=== PATIENT | male | born 1960 | race Caucasian/White ===

== ENCOUNTER 2017-04-30 05:50 | Day surgery (SDC) | payer BC ==
[2017-04-28 13:14] VITALS: BMI 29.4
[~2017-04-30 05:50] MED LIST: HEPARIN SODIUM,PORCINE 5,000 UNIT/ML 1 ML VIAL SQ ONE; ceFAZolin 2 GM in SODIUM CHLORIDE 0.9% 100 ML IVPB ONE
[2017-04-30] MEDS ORDERED: HYDROmorphone 0.5 MG/0.5 ML SYRINGE IVP PRN (06:04)
[2017-04-30] MEDS ORDERED: DEXAMETHASONE SOD PHOSPHATE 10 MG/ML 1 ML VIAL IV ONE (06:04)
[2017-04-30] MEDS ORDERED: ONDANSETRON 4 MG/2 ML VIAL IVP ONE (06:04)
[2017-04-30] MEDS: LACTATED RINGERS 1,000 ML IV SCH ×2 (06:36→06:37)
[2017-04-30] MEDS ORDERED: LIDOCAINE 1% 20 ML VIAL (10MG/ML) FOR IV START INTRADERMA ONE (06:37)
[2017-04-30] MEDS ORDERED: SUCCINYLCHOLINE CHLORIDE 100 MG/5 ML SYR IV ONE (07:48)
[2017-04-30] MEDS ORDERED: NEOSTIGMINE 1 MG/ML 10 ML VIAL ONE (07:48)
[2017-04-30] MEDS ORDERED: PROPOFOL 10 MG/ML 20 ML VIAL IV ONE (07:48)
[2017-04-30] MEDS ORDERED: ROCURONIUM BROMIDE 10 MG/ML 10 ML VIAL IV ONE ×2 (07:48)
[2017-04-30] MEDS ORDERED: GLYCOPYRROLATE 0.2 MG/ML 2 ML VIAL ONE (07:48)
[2017-04-30] MEDS ORDERED: HYDROmorphone (PF) 1 MG/ML ONE (07:48)
[2017-04-30] MEDS ORDERED: KETOROLAC 30 MG/ML 1 ML VIAL ONE (07:48)
[2017-04-30] MEDS ORDERED: MIDAZOLAM 2 MG/2 ML VIAL ONE (07:48)
[2017-04-30] MEDS ORDERED: fentaNYL (PF) 50 MCG/ML 2 ML AMP ONE (07:48)
[2017-04-30] MEDS ORDERED: BUPIVACAINE-EPI 0.5%-1:200,000 10 ML VIAL SQ ONE (08:46)
[2017-04-30 10:17] VITALS: TEMP 97.4
--- NOTE | 2017-04-30 10:18 | P.OP ---
Date of Procedure: 04/30/17 Preoperative Diagnosis: Right inguinal hernia Postoperative Diagnosis: Right indirect inguinal hernia Procedure(s) Performed: RObot assisted laparoscopic right inguinal hernia repair with mesh Anesthesia: CARRILLO Surgeon: Jimi Rivera Pathology: none sent Condition: stable Description of Procedure: Informed consent was obtained patient and then The patient was brought to the operating room and placed in supine position. General anesthesia with endotracheal intubation was performed as per anesthesia team. A mcdonald catheter was inserted under sterile aseptic precautions. Chlorhprep was used to prep the skin followed by application of sterile drapes . He was placed in the lithotomy position.A timeout was performed to verify correct patient, correct procedure and correct side. Patient was confirmed to receive perioperative IV antibiotics, subcutaneous heparin 5000 units and bilateral SCDs were placed. The left upper quadrant point was identified and a stab incision was made. Veress needle was introduced and placement was confirmed with the help of the drop test. The abdomen was then insufflated to 15 mmHg. Once that was done 5 mm port was introduced into the left upper quadrant using the Optiview technique after which a 12 mm port was placed in the supraumbilical position and a 8 mm port in the right lower quadrant and another 8 mm port in the left upper quadrant . The robot was then docked with the central camera port and the 2 side working ports. The degree of scope was introduced and the abdomen down through the 12 mm port site. Cardiovascular and the left hand and scissor in the right hand was introduced in the abdominal cavity after which the median umbilical fold was retracted laterally towards the left side a small incision was made at the junction of the umbilical fold and the peritoneum and carried all the way laterally thus creating a small plane in the preperitoneal space. This did this was further dissected with the help of blunt dissection using gentle stroking maneuvers all the way down to Javier ligament medially and laterally we went inferior exposing the vessels inferiorly. The vas was identified and the hernia sac was teased off of the spermatic cord gently with the help of blunt dissection. The hernia sac was very densely adherent as well as extremely long extending on very deep arm and therefore instead of completely removing it was transected with the help of a scissors and this freeing up the cord and the hernia sac. Once critical view was was confirmed the 10 x 15 Bard Pro setter helper mesh was introduced in the abdominal cavity with the lower part above the level of the peritoneal fold was then unfolded so that it covered all the orifices and covered the Javier's ligament medially once again pain positioned perfectly to seal was applied to the inferior edge of the mesh as well as around the Javier's ligament after which the peritoneal flaps were closed with the help of running 20V lock suture. The holes in the peritoneum were closed with the help of 2-0 Vicryl. once that was done procedure was completed all incisions and camera was removed and a laparoscope was introduced and the 12 mm port site was closed with the help of a Carlos Pena the direct vision after which gas was turned off abdomen was thoroughly desufflated skins was closed with the help of 4-0 Monocryl and Dermabond. patient was extubated and taken to recovery room in stable condition patient tolerated the procedure well there were no complications
[2017-04-30] MEDS ORDERED: HYDROcodone/APAP 5-325MG 1 EACH TAB PO ONE (10:57)
[2017-04-30 12:18] VITALS: RESP 16
[2017-04-30 12:44] VITALS: BP 110/74; PULSE 51
== END 2017-04-30 13:24 | disposition home or self-care (01) ==
LOC: OR 05:50
PROVIDERS: ATTEND Surgery
DX: K40.90 Unilateral inguinal hernia, without obstruction or gangrene, not specified as recurrent (principal); I10 Essential (primary) hypertension; Z82.3 Family history of stroke; Z82.49 Family history of ischemic heart disease and other diseases of the circulatory system; Z80.7 Family history of other malignant neoplasms of lymphoid, hematopoietic and related tissues; Z79.899 Other long term (current) drug therapy
CPT/HCPCS: 49650; S2900

== ENCOUNTER 2020-05-06 21:22 | Emergency (ER) | payer BC ==
[2020-05-06] MEDS ORDERED: SODIUM CHLORIDE 0.9% 500 ML 500 ML IV STA (22:05)
--- NOTE | 2020-05-06 22:06 | ED ---
Abdominal Pain HPI - General Chief Complaint: Abdominal Pain Stated Complaint: Abd Pain Source: patient Mode of arrival: ambulatory Limitations: no limitations - History of Present Illness Initial Comments: Celso is a previously healthy 60-year-old male who presents to ER today for evaluation of left-sided abdominal pain. Patient reports the pain began as an ache earlier in the day progressively worsening to the point where he cannot get comfortable or sleep. Patient reports the pain is now sharp located in the left lower quadrant. No radiation to the back or the pelvis. He does feel he is constipated he had one firm stool earlier today. Last colonoscopy was 8 years ago and reportedly normal he is scheduled to have another colonoscopy in 2 years. No history of diverticulitis diverticulosis. History of kidney stones. No lower urinary tract symptoms. - Related Data Home Medications Medication Instructions Recorded Confirmed Lisinopril-Hctz 20-12.5 mg 1 tab PO DAILY 04/28/17 04/30/17 [Zestoretic 20-12.5] Multivitamin [Men's Multi-Vitamin] 1 each PO DAILY 04/28/17 04/30/17 Previous Rx's Medication Instructions Recorded HYDROcodone/APAP 5-325MG [[place] 5] 1 each PO Q4HR PRN #12 tab 04/30/17 Ibuprofen [Motrin] 800 mg PO Q8H #30 tab 04/30/17 Allergies Allergy/AdvReac Type Severity Reaction Status Date / Time No Known Allergies Allergy Verified 05/06/20 21:29 Review of Systems ROS Statement: Those systems with pertinent positive or pertinent negative responses have been documented in the HPI. ROS Other: All systems not noted in ROS Statement are negative. Past Medical History Past Medical History: Hypertension Additional Past Medical History / Comment(s): RT INGUINAL HERNIA History of Any Multi-Drug Resistant Organisms: None Reported Additional Past Surgical History / Comment(s): RT EYE LAZY Past Anesthesia/Blood Transfusion Reactions: No Reported Reaction Past Psychological History: No Psychological Hx Reported Smoking Status: Never smoker Past Alcohol Use History: Occasional Past Drug Use History: None Reported - Past Family History Son(s) Family Medical History: Cancer Additional Family Medical History / Comment(s): LYMPHOMA General Exam - General Exam Comments Initial Comments: Physical Exam GENERAL: Patient is well-developed and well-nourished. Patient is nontoxic and well-hydrated and is in no distress. HENT: Normocephalic, Atraumatic. EYES: PERRL, EOMI PULMONARY: Unlabored respirations. CARDIOVASCULAR: RRR Warm and well perfused extremities ABDOMEN: Non-distended Tender to palpation in LLQ Non-peritoneal No hernia on exam SKIN: No rashes or bruising : Deferred NEUROLOGIC: Alert and oriented Normal speech Normal gait MUSCULOSKELETAL: Moving all extremities with no apparent injury PSYCHIATRIC: No SI/HI Limitations: no limitations Course Vital Signs 05/06/20 05/06/20 21:27 22:45 Temperature 98.1 F Pulse Rate 87 82 Respiratory 16 18 Rate Blood Pressure 112/76 105/66 O2 Sat by Pulse 96 98 Oximetry Medical Decision Making - Medical Decision Making Patient was seen and evaluated, history is obtained from the patient and at bedside Healthy 60-year-old male with left lower quadrant discomfort, no change in bowel or bladder habits Labs were obtained and confirmed chronic kidney disease no acute findings no leukocytosis Computed tomography scan was obtained to evaluate for possible diverticulitis and was negative there are no acute findings Results were discussed with the patient who expresses relief. I discussed with the patient that this could be musculoskeletal in nature as he does work out very avidly imperative pulled a muscle. In addition we discussed possibility that this is a. Herpetic neuralgia he could be developing shingles and if he develops any rashing needs to return to the ER see his primary care physician immediately for medications. All questions pertaining care were answered return parameters were discussed patient was discharged home in stable condition. - Lab Data Result diagrams: 05/06/20 22:12 05/06/20 22:12 Lab Results 05/06/20 05/06/20 05/06/20 Range/Units 22:12 22:12 22:12 WBC 8.2 (3.8-10.6) k/uL RBC 4.80 (4.30-5.90) m/uL Hgb 15.5 (13.0-17.5) gm/dL Hct 45.8 (39.0-53.0) % MCV 95.5 (80.0-100.0) fL MCH 32.4 (25.0-35.0) pg MCHC 33.9 (31.0-37.0) g/dL RDW 12.3 (11.5-15.5) % Plt Count 272 (150-450) k/uL Neutrophils % 63 % Lymphocytes % 25 % Monocytes % 8 % Eosinophils % 3 % Basophils % 0 % Neutrophils # 5.1 (1.3-7.7) k/uL Lymphocytes # 2.1 (1.0-4.8) k/uL Monocytes # 0.6 (0-1.0) k/uL Eosinophils # 0.2 (0-0.7) k/uL Basophils # 0.0 (0-0.2) k/uL Sodium 133 L (137-145) mmol/L Potassium 4.3 (3.5-5.1) mmol/L Chloride 104 (98-107) mmol/L Carbon Dioxide 19 L (22-30) mmol/L Anion Gap 10 mmol/L BUN 27 H (9-20) mg/dL Creatinine 1.45 H (0.66-1.25) mg/dL Est GFR (CKD-EPI)AfAm 59 (>60 ml/min/1.73 sqM) Est GFR (CKD-EPI)NonAf 51 (>60 ml/min/1.73 sqM) Glucose 102 H (74-99) mg/dL Plasma Lactic Acid Bin (0.7-2.0) mmol/L Calcium 9.5 (8.4-10.2) mg/dL Total Bilirubin 0.6 (0.2-1.3) mg/dL AST 47 (17-59) U/L ALT 46 (4-49) U/L Alkaline Phosphatase 92 (38-126) U/L Total Protein 7.4 (6.3-8.2) g/dL Albumin 4.7 (3.5-5.0) g/dL Lipase 137 (23-300) U/L Urine Color Yellow Urine Appearance Clear (Clear) Urine pH 5.5 (5.0-8.0) Ur Specific [place] 1.018 (1.001-1.035) Urine Protein Negative (Negative) Urine Glucose (UA) Negative (Negative) Urine Ketones Negative (Negative) Urine Blood Negative (Negative) Urine Nitrite Negative (Negative) Urine Bilirubin Negative (Negative) Urine Urobilinogen <2.0 (<2.0) mg/dL Ur Leukocyte Esterase Small H (Negative) Urine RBC <1 (0-5) /hpf Urine WBC 2 (0-5) /hpf Urine Mucus Rare H (None) /hpf 05/06/20 Range/Units 22:12 WBC (3.8-10.6) k/uL RBC (4.30-5.90) m/uL Hgb (13.0-17.5) gm/dL Hct (39.0-53.0) % MCV (80.0-100.0) fL MCH (25.0-35.0) pg MCHC (31.0-37.0) g/dL RDW (11.5-15.5) % Plt Count (150-450) k/uL Neutrophils % % Lymphocytes % % Monocytes % % Eosinophils % % Basophils % % Neutrophils # (1.3-7.7) k/uL Lymphocytes # (1.0-4.8) k/uL Monocytes # (0-1.0) k/uL Eosinophils # (0-0.7) k/uL Basophils # (0-0.2) k/uL Sodium (137-145) mmol/L Potassium (3.5-5.1) mmol/L Chloride (98-107) mmol/L Carbon Dioxide (22-30) mmol/L Anion Gap mmol/L BUN (9-20) mg/dL Creatinine (0.66-1.25) mg/dL Est GFR (CKD-EPI)AfAm (>60 ml/min/1.73 sqM) Est GFR (CKD-EPI)NonAf (>60 ml/min/1.73 sqM) Glucose (74-99) mg/dL Plasma Lactic Acid Bin 0.6 L (0.7-2.0) mmol/L Calcium (8.4-10.2) mg/dL Total Bilirubin (0.2-1.3) mg/dL AST (17-59) U/L ALT (4-49) U/L Alkaline Phosphatase (38-126) U/L Total Protein (6.3-8.2) g/dL Albumin (3.5-5.0) g/dL Lipase (23-300) U/L Urine Color Urine Appearance (Clear) Urine pH (5.0-8.0) Ur Specific [place] (1.001-1.035) Urine Protein (Negative) Urine Glucose (UA) (Negative) Urine Ketones (Negative) Urine Blood (Negative) Urine Nitrite (Negative) Urine Bilirubin (Negative) Urine Urobilinogen (<2.0) mg/dL Ur Leukocyte Esterase (Negative) Urine RBC (0-5) /hpf Urine WBC (0-5) /hpf Urine Mucus (None) /hpf Disposition Clinical Impression: Abdominal pain Disposition: HOME SELF-CARE Condition: Stable Additional Instructions: As we discussed her labs and CT were unremarkable there were no acute findings or signs of inflammation of your bowel It is possible E have a pulled muscle in her abdomen however given a having si gnificant pain in one specific area we cannot rule out the ear developing shingles if you develop any rash return to the ER or see her primary care physician for medications Is patient prescribed a controlled substance at d/c from ED?: No Referrals: Yogesh Suh MD [Primary Care Provider] - 1-2 days
[2020-05-06 22:23] LABS: Basophils % (A) 0 %; Eosinophils # (A) 0.2 k/uL (0-0.7); Eosinophils % (A) 3 %; HCT 45.8 % (39.0-53.0); HGB 15.5 gm/dL (13.0-17.5); Lymphocytes # (A) 2.1 k/uL (1.0-4.8); Lymphocytes % (A) 25 %; MCH 32.4 pg (25.0-35.0); MCHC 33.9 g/dL (31.0-37.0); MCV 95.5 fL (80.0-100.0); Mean Platelet Volume 7.1; Monocytes # (A) 0.6 k/uL (0-1.0); Monocytes % (A) 8 %; Neutrophils # (A) 5.1 k/uL (1.3-7.7); Neutrophils % (A) 63 %; Platelet Count 272 k/uL (150-450); RDW 12.3 % (11.5-15.5); WBC 8.2 k/uL (3.8-10.6)
[2020-05-06 22:36] LABS: Albumin 4.7 g/dL (3.5-5.0); Calcium 9.5 mg/dL (8.4-10.2); Total Bilirubin 0.6 mg/dL (0.2-1.3); Total Protein 7.4 g/dL (6.3-8.2)
--- NOTE | 2020-05-06 22:37 | XR ---
EXAMINATION TYPE: XR KUB DATE OF EXAM: 05/06/2020 COMPARISON: NONE HISTORY: Left lower quadrant pain TECHNIQUE: 2 views FINDINGS: There is no sign of intestinal obstruction or pneumoperitoneum. Fecal pattern is normal. Th ere is no evidence of a mass. Lung bases are clear. There are no pathologic calcifications over the k idneys. There is moderate narrowing of the left hip joint space. IMPRESSION: Nonacute abdomen.
[2020-05-06 22:48] LABS: Potassium 4.3 mmol/L (3.5-5.1)
[2020-05-06 23:26] LABS: Appearance,Urine Clear (Clear); Bilirubin,Urine Negative (Negative); Blood,Urine Negative (Negative); Color,Urine Yellow; Glucose,Urine (UA) Negative (Negative); Ketones,Urine Negative (Negative); Leukocyte Esterase,Urine Small (Negative); Mucus,Urine Rare /hpf; Nitrite,Urine Negative (Negative); PH, Urine 5.5 (5.0-8.0); Protein,Urine Negative (Negative); RBC,Urine <1 /hpf (0-5); Specific Gravity,Urine 1.018 (1.001-1.035); Urobilinogen,Urine <2.0 mg/dL (<2.0); WBC,Urine 2 /hpf (0-5)
--- NOTE | 2020-05-06 23:46 | CT ---
EXAMINATION TYPE: CT abdomen pelvis w con DATE OF EXAM: 05/06/2020 COMPARISON: None HISTORY: LLQ pain CT DLP: 1370 mGycm Automated exposure control for dose reduction was used. CONTRAST: Performed with IV Contrast, patient injected with 80 mL of Isovue 300. Lung bases are clear of consolidation. There is no pleural effusion. Heart size is normal. There is n o pericardial effusion. Stomach is intact. Liver spleen pancreas gallbladder appear normal. Bile duct s are not dilated. There is no adrenal mass. Kidneys show satisfactory contrast opacification. There is no hydronephrosi s. Delayed images show normal renal excretion. Ureters are not dilated. There is no retroperitoneal a denopathy. Bladder distends smoothly. There is enlarged prostate that measures 6 cm. There is no ingu inal hernia. There is no free fluid in the pelvis. There are a few sigmoid diverticula. I see no sign of diverticu litis. Appendix is posterior and appears normal. There is no mesenteric edema. There is no ascites or free air. There is no bowel obstruction. There is mild urinary bladder wall thickening. Lumbar spine is intact. There is no compression fracture. The bony pelvis is intact. There is hypertrophic degene rative changes in both hip joints. There is narrowing of the hip joint spaces. Arthritis is worse on the left side. IMPRESSION: Sigmoid diverticulosis without diverticulitis. There is overall diffuse colonic diverticulosis. Enlar ged prostate. Urinary bladder wall is slightly thickened and could relate to nonspecific cystitis or hypertrophy.
[2020-05-07 00:58] VITALS: BP 115/74; PULSE 85; RESP 16; TEMP 98.6
== END 2020-05-07 00:52 | disposition home or self-care (01) ==
LOC: EC 21:22
DX: R10.32 Left lower quadrant pain (principal); I12.9 Hypertensive chronic kidney disease with stage 1 through stage 4 chronic kidney disease, or unspecified chronic kidney disease; N18.9 Chronic kidney disease, unspecified; M79.2 Neuralgia and neuritis, unspecified; Z79.899 Other long term (current) drug therapy; Z87.442 Personal history of urinary calculi
CPT/HCPCS: 36415; 80053; 83605; 83690; 85025; 81001; 74018; 74177; 99284; Q9967